=== PATIENT | female | born 1995 | race Caucasian/White ===

== ENCOUNTER → 2017-04-01 | Outpatient (CLI) | payer MEDICAID ==
--- NOTE | 2017-04-02 09:58 | MRI ---
Indication: Right toe injury. Exam: MRI right foot without contrast Technique: Routine multiplanar multisequence imaging was performed through the right foot without con trast. Findings: No fracture dislocation is seen. The bone marrow signal is normal throughout. The surroundi ng tendons and ligaments are intact and normal signal intensity. There is mild focal heterogeneous si gnal in the soft tissues between the 1st and 2nd toes extending along the plantar surface which may r epresent some susceptibility artifact. No obvious focal mass or fluid collection can be seen in the a herlinda. The joint spaces are intact and no erosions are seen. The surrounding tendons and ligaments appe ar intact. Impression: No acute bony abnormality. Small focus of abnormal signal in the soft tissues along the plantar surface of the 1st and 2nd toes which may represent susceptibility artifact from prior surgery was otherwise of uncertain etiology . Recommend clinical follow-up of the area. The surrounding tendons and ligaments appear intact and normal signal intensity. Reported By:
== END ==
LOC: RAD 14:43
PROVIDERS: ATTEND Specialist
DX: S96.091 Other injury of muscle and tendon of long flexor muscle of toe at ankle and foot level, right foot (principal); X58.XXXS Exposure to other specified factors, sequela
CPT/HCPCS: 73721

== ENCOUNTER 2020-01-07 06:22 | Observation (INO) ==
[2020-01-07] MEDS ORDERED: ANCEF VIAL 1 GRAM IVP ONE (06:34)
[2020-01-07] MEDS: D5 1/2 NS 1000 ML 1,000 ML IV SCH ×2 (06:34→17:47)
[2020-01-07] MEDS ORDERED: D5 LR 1000 ML 1,000 ML IV ONE (06:40)
[2020-01-07] MEDS ORDERED: ANCEF 1 GRAM IV PREMIX* 1 G/50 ML BAG IV ONE (06:41)
[2020-01-07] MEDS ORDERED: VASOSTRICT INJ 20 UNITS VIAL ONE (06:47)
[2020-01-07] MEDS ORDERED: BETADINE SURGICAL SCRUB ONE (06:48)
[2020-01-07] MEDS ORDERED: BETADINE SOLN ONE (06:48)
[2020-01-07] MEDS ORDERED: FENTANYL INJ 250 mcg ONE (07:01)
[2020-01-07 07:09] VITALS: BMI 25.1
[2020-01-07] MEDS ORDERED: NORCURON INJ 10 MG VIAL ONE (07:24)
[2020-01-07] MEDS ORDERED: NEOSTIGMINE INJ ONE (07:24)
[2020-01-07] MEDS ORDERED: LTA KIT LIDOCAINE 4% ONE (07:24)
[2020-01-07] MEDS ORDERED: DIPRIVAN VIAL ONE (07:24)
[2020-01-07] MEDS ORDERED: SUPRANE ONE (07:24)
[2020-01-07] MEDS ORDERED: VERSED ONE (07:24)
[2020-01-07] MEDS ORDERED: QUELICIN (OR ANECTINE) ONE (07:24)
[2020-01-07] MEDS ORDERED: ZOFRAN INJ 4 MG VIAL ONE (07:24)
[2020-01-07] MEDS ORDERED: ROBINUL ONE (07:24)
[2020-01-07] MEDS ORDERED: XYLOCAINE 2 % (PLAIN) ONE (07:24)
[2020-01-07] MEDS ORDERED: DECADRON INJ ONE (07:51)
[2020-01-07] MEDS ORDERED: LR 1000 ML IV 1,000 ML IV ONE (08:26)
[2020-01-07] MEDS ORDERED: DILAUDID INJ ONE (08:50)
[2020-01-07] MEDS ORDERED: BENADRYL INJ 50 MG VIAL IVP PRN ×2 (08:55→09:35)
[2020-01-07] MEDS: DILAUDID INJ IVP PRN ×4 (08:55→09:20)
[2020-01-07] MEDS ORDERED: PHENERGAN INJ 25 MG IM PRN (08:55)
[2020-01-07] MEDS ORDERED: ZOFRAN INJ 4 MG VIAL IVP PRN (08:55)
[2020-01-07] MEDS ORDERED: REGLAN INJ 10 MG VIAL IVP PRN (08:55)
[2020-01-07] MEDS ORDERED: ATIVAN TAB 0.5 MG PO PRN (09:35)
[2020-01-07] MEDS ORDERED: D5 1/2 NS 1000 ML 1,000 ML IV SCH (09:35)
[2020-01-07] MEDS ORDERED: TORADOL 30 MG VIAL ONE (09:58)
[2020-01-07] MEDS: TORADOL 30 MG VIAL IVP PRN ×3 (10:13→23:50)
[2020-01-07] MEDS: NICOTINE PATCH TD SCH (10:21)
[2020-01-07] MEDS: TOPROL XL PO SCH ×2 (10:22→20:43)
[2020-01-07] MEDS: KEPPRA TAB 500 MG PO SCH (10:23)
[2020-01-07] MEDS: PERCOCET TAB 5/325 MG PO PRN ×2 (10:39→14:26)
[2020-01-07] MEDS ORDERED: ATIVAN TAB 1 MG PO PRN (11:13)
[2020-01-07] MEDS ORDERED: MORPHINE SULFATE INJ 2 MG INJ IVP ONE ×2 (11:53→15:12)
[2020-01-07] MEDS ORDERED: NS IRRIGATION* 500 ML IR ONE (15:44)
[2020-01-07] MEDS: ZOFRAN INJ 4 MG VIAL IVP PRN ×2 (15:45→20:45)
[2020-01-07] MEDS: MORPHINE SULFATE INJ 2 MG INJ IVP PRN (20:43)
[2020-01-07] MEDS ORDERED: EFFEXOR TAB 75 MG (BID DOSING) PO SCH (21:00)
[2020-01-07] MEDS ORDERED: MAALOX or MYLANTA ONE (22:53)
[2020-01-07] MEDS ORDERED: MAALOX or MYLANTA PO PRN (22:57)
[2020-01-08] MEDS: PERCOCET TAB 5/325 MG PO PRN (02:15)
[2020-01-08] MEDS: MORPHINE SULFATE INJ 2 MG INJ IVP PRN (04:59)
[2020-01-08] MEDS: TORADOL 30 MG VIAL IVP PRN (06:08)
[2020-01-08 06:22] LABS: BLOOD UREA NITROGEN 3 mg/dL (7-18); CALCIUM 8.6 mg/dL (8.5-10.1); CARBON DIOXIDE 26.1 mmol/L (21-32); CHLORIDE 104 mmol/L (98-107); CREATININE 0.69 mg/dL (0.55-1.02); SODIUM 138 mmol/L (136-145); eGFR NON BLACK RACES > 60 (>60)
[2020-01-08 06:50] LABS: BASOPHILS % (AUTO) 0.2 % (0.2-1.0); EOSINOPHILS # (AUTO) 0.1 x10^3/uL (0.0-0.2); HEMATOCRIT 39.1 % (36.0-47.0); HEMOGLOBIN 13.3 g/dL (12.0-16.0); LYMPHOCYTES # (AUTO) 3.3 X10^3/uL (1.3-2.9); LYMPHOCYTES % (AUTO) 27.4 % (21.0-51.0); MEAN CORPUSCULAR HEMOGLOBIN 30.6 pg (27.0-34.0); MEAN CORPUSCULAR HGB CONC 33.9 g/dL (33.0-35.0); MEAN CORPUSCULAR VOLUME 90.1 fL (80.0-100.0); MONOCYTES # (AUTO) 1.1 x10^3/uL (0.3-0.8); MONOCYTES % (AUTO) 9.2 % (0.0-13.0); NEUTROPHILS # (AUTO) 7.4 x10^3/uL (2.2-4.8); NEUTROPHILS % (AUTO) 62.2 % (42.0-75.0); PLATELET COUNT 271 X10^3/uL (150.0-450.0); RED BLOOD COUNT 4.34 X10^6/uL (3.5-5.4); RED CELL DISTRIBUTION WIDTH 12.8 % (11.6-16.5); WHITE BLOOD COUNT 11.9 X10^3/uL (3.6-10.0)
[2020-01-08] MEDS ORDERED: EFFEXOR TAB 75 MG (BID DOSING) PO SCH (09:00)
[2020-01-08] MEDS: KEPPRA TAB 500 MG PO SCH (09:23)
[2020-01-08] MEDS: NICOTINE PATCH TD SCH (09:24)
[2020-01-08] MEDS: TOPROL XL PO SCH (09:26)
[2020-01-08 09:57] VITALS: BP 130/86
== END 2020-01-08 10:12 | disposition home or self-care (01) ==
LOC: MED/SURG 06:22 → SURG1 06:22 → MED/SURG 10:15
PROVIDERS: ADMIT Specialist; ATTEND Specialist
DX: R10.2 Pelvic and perineal pain; A63.0 Anogenital (venereal) warts; N87.0 Mild cervical dysplasia